=== PATIENT | female | born 1965 | race Caucasian/White ===

== ENCOUNTER → 2018-04-02 | Outpatient (CLI) | payer OTHER ==
[~2018-04-02] MED LIST: ASPIRIN 325 MG TABLET ONE; CLOPIDOGREL BISULFATE 75 MG TABLET ONE; HEPARIN for IV BOLUS 10,000 UNIT/10 ML VIAL. ONE; IOHEXOL 300 MG/ML 100ML VIAL. ONE; IV NORMAL SALINE 500ML BAG 1,000 ML ONE; IV NORMAL SALINE 500ML BAG 500 ML ONE; LIDOCAINE 1% PF 30 ML VIAL. ONE; WATER FOR INJECTION,STERILE 20 ML VIAL. IJ ONE; ceFAZolin SODIUM 1 GM VIAL ONE
--- NOTE | 2018-04-02 21:01 | PCVCINTER ---
EXAM: 1. INTRAVASCULAR ULTRASOUND OF THE INFERIOR VENA CAVA 2. INTRAVASCULAR ULTRASOUND OF THE RIGHT COMMON AND EXTERNAL ILIAC AND COMMON FEMORAL VEINS 3. INTRAVASCULAR ULTRASOUND OF THE LEFT COMMON AND EXTERNAL ILIAC AND COMMON FEMORAL VEINS 4. INFERIOR VENA CAVA AND BILATERAL ILIOFEMORAL VENOGRAPHY 5. RIGHT EXTERNAL ILIAC VEIN STENT PLACEMENT. 6. LEFT EXTERNAL ILIAC VEIN STENT PLACEMENT. INDICATION: Iliofemoral venous obstruction. Chronic Venous Insufficiency Class 4a. Leg pain and swelling. Failed conservative therapy including medical grade compression stockings for at least 3 months. Venous hypertension chronic. PROCEDURE: Procedure and risks of IVC and ileofemoral venography and intravascular ultrasound, and venous stent placement as appropriate including bleeding, infection, venous thrombosis, stent migration/thrombosis, contrast-induced nephropathy requiring dialysis, stroke, and were discussed with the patient and consent obtained. Patient was given IV antibiotics. The patient's right neck and chest was prepped and draped in the normal sterile fashion. IV conscious sedation was used throughout the procedure with appropriate monitoring. Ultrasound was used to interrogate the neck and showed the internal jugular vein to be patent. A spot ultrasound image of the internal jugular vein was saved. Under ultrasound guidance access into the right internal jugular vein was obtained and an 8F sheath was placed to the level of the lower IVC. Catheter was placed into the lower IVC and IVC cavogram performed. Catheter was placed to the level of the right common femoral vein and right iliofemoral venogram obtained. Catheter was placed to the level of the left common femoral vein and left iliofemoral venogram was obtained. The 8 [place] intravascular ultrasound catheter was then placed to the level of the right common femoral vein and intravascular ultrasound evaluation of the right common femoral, right external iliac, and right common iliac veins was accomplished in a pull-back fashion. The 8 [place] intravascular ultrasound catheter was then placed to the level of the left common femoral vein and intravascular ultrasound evaluation of the left common femoral, left external iliac, and left common iliac veins was accomplished in a pull-back fashion. Intravascular ultrasound evaluation of the inferior vena cava was then accomplished in a pullback fashion. Sheath was removed and hemostasis obtained using manual pressure. FINDINGS: IVC INTRAVASCULAR ULTRASOUND: Normal vessel: 10.8 x 23.0 mm. Area = 196.8 sq. mm. RIGHT COMMON ILIAC VEIN INTRAVASCULAR ULTRASOUND: Normal vessel: 8.2 x 18.2 mm. Area = 122.4 sq. mm. RIGHT EXTERNAL ILIAC VEIN INTRAVASCULAR ULTRASOUND: Normal vessel: 7.7 x 14.8 mm. Area = 97.0 sq. mm. Minimum vessel diameter: 0 x 0 mm. Area = 0 sq. mm. Post-Intervention diameter: 11.8 x 15.2 mm. Area = 146.6 sq. mm. RIGHT COMMON FEMORAL VEIN INTRAVASCULAR ULTRASOUND: Normal vessel: 12.0 x 16.6 mm. Area = 156.6 sq. mm. LEFT COMMON ILIAC VEIN INTRAVASCULAR ULTRASOUND: Normal vessel: 13.5 x 17.9 mm. Area = 194.1 sq. mm. LEFT EXTERNAL ILIAC VEIN INTRAVASCULAR ULTRASOUND: Normal vessel: 8.2 x 15.3 mm. Area = 95.2 sq. mm. Minimum vessel diameter: 2.8 x 10.6 mm. Area = 22.5 sq. mm. Post-Intervention diameter: 13.0 x 15.0 mm. Area = 155.0 sq. mm. LEFT COMMON FEMORAL VEIN INTRAVASCULAR ULTRASOUND: Normal vessel: 10.8 x 14.8 mm. Area = 127.6 sq. mm. VENOGRAPHY: INFERIOR VENA CAVA: Vessel is patent without significant stenosis, scarring, or extrinsic compression. RIGHT COMMON ILIAC VEIN: Vessel is patent without significant stenosis, scarring, or extrinsic compression. RIGHT EXTERNAL ILIAC VEIN: Diffuse high-grade stenosis throughout the vessel due to extrinsic compression. RIGHT COMMON FEMORAL VEIN: Vessel is patent without significant stenosis, scarring, or extrinsic compression. LEFT COMMON ILIAC VEIN: Vessel is patent without significant stenosis, scarring, or extrinsic compression. LEFT EXTERNAL ILIAC VEIN: Diffuse moderately high-grade stenosis throughout the vessel due to extrinsic compression. LEFT COMMON FEMORAL VEIN: Vessel is patent without significant stenosis, scarring, or extrinsic compression. IMPRESSION: Areas of significant stenosis are seen in the right and left external iliac veins due to extrinsic compression. These areas were treated with stent placements with good patency restored throughout the iliac veins bilaterally. LOC:[id number]
== END | disposition home or self-care (01) ==
LOC: PCVCINTER 09:41
PROVIDERS: ATTEND Nuclear Medicine Nuclear Cardiology
DX: I87.2 Venous insufficiency (chronic) (peripheral) (principal); I87.309 Chronic venous hypertension (idiopathic) without complications of unspecified lower extremity; I87.1 Compression of vein; Z88.2 Allergy status to sulfonamides; Z88.5 Allergy status to narcotic agent
CPT/HCPCS: 36012; 37238; 37239; 37252; 37253; 75822; 75825; 76937; C1725; C1751; C1769; C1876; C1894; J0690; J1644; J7040; Q9967

== ENCOUNTER → 2018-04-16 | Outpatient (CLI) | payer OTHER ==
--- NOTE | 2018-04-16 09:48 | PCVCIMAG ---
EXAM: BILATERAL SUPERFICIAL VENOUS DUPLEX INDICATION: Leg pain and swelling. FINDINGS: Right leg: No thrombus in the common femoral, main femoral, or popliteal veins. These veins are compressible. Right Great Saphenous Vein: At the saphenofemoral junction the diameter is 6.1 mm, in the mid thigh it is 3.8 mm, and in the calf it is 4.9 mm. There is not significant venous insufficiency/reflux throughout. Venous insufficiency/reflux duration is 0 seconds. Right Small Saphenous Vein: At the saphenopopliteal junction the diameter is 2.3 mm, and in the calf it is 2.8 mm. There is not significant venous insufficiency/reflux throughout. Venous insufficiency/reflux duration is 0 seconds. There is a cranial extension present. Left leg: No thrombus in the common femoral, main femoral, or popliteal veins. These veins are compressible. Left Great Saphenous Vein: At the saphenofemoral junction the diameter is 8.1 mm, in the mid thigh it is 3.4 mm, and in the calf it is 2.3 mm. There is not significant venous insufficiency/reflux throughout. Venous insufficiency/reflux duration is 0.2 seconds. Left Small Saphenous Vein: At the saphenopopliteal junction the diameter is 3.8 mm, and in the calf it is 5.1 mm. There is not significant venous insufficiency/reflux throughout. Venous insufficiency/reflux duration is 0.1 seconds. There is a cranial extension present. IMPRESSION: Right Great Saphenous Vein: No significant venous insufficiency/reflux is present as noted above. Right Small Saphenous Vein: No significant venous insufficiency/reflux is present as noted above. Left Great Saphenous Vein: No significant venous insufficiency/reflux is present as noted above. Left Small Saphenous Vein: No significant venous insufficiency/reflux is present as noted above. LOC:[id number]
--- NOTE | 2018-04-16 09:51 | PCVCIMAG ---
EXAM: VENOUS DUPLEX OF THE INFERIOR VENA CAVA AND RIGHT AND LEFT ILIAC VEINS INDICATION: Leg pain and swelling. FINDINGS: IVC: Good flow maintained throughout the inferior vena cava were visualized. Right iliac: Previous stent throughout the right external iliac vein maintaining good patency. No thrombus or stenosis in the common or external iliac veins. Left iliac: Previous stent throughout the left external iliac vein maintaining good patency. No thrombus or stenosis in the common or external iliac veins. IMPRESSION: Venous duplex evaluation of the inferior vena cava and iliac veins bilaterally within normal limits. Previous bilateral external iliac vein stents maintaining satisfactory patency. LOC:[id number]
== END | disposition home or self-care (01) ==
LOC: PCVCIMAG 10:39
PROVIDERS: ATTEND Nuclear Medicine Nuclear Cardiology
DX: M79.604 Pain in right leg (principal); M79.605 Pain in left leg; M79.89 Other specified soft tissue disorders
CPT/HCPCS: 93970; 93976

== ENCOUNTER → 2018-06-10 | Outpatient (CLI) | payer OTHER ==
--- NOTE | 2018-06-10 09:27 | PCVCIMAG ---
EXAM: VENOUS DUPLEX OF THE INFERIOR VENA CAVA AND RIGHT AND LEFT ILIAC VEIN INDICATION: Leg pain and swelling. Prior iliac vein stents. FINDINGS: IVC: Good flow maintained throughout the inferior vena cava where visualized. Right iliac: Previous stent throughout the right external iliac vein maintaining good patency. No thrombus or stenosis in the common or external iliac veins. Common femoral vein is patent. Left iliac: Previous stent throughout the left external iliac vein maintaining good patency. No thrombus or stenosis in the common or external iliac veins. Common femoral vein is patent. IMPRESSION: Venous duplex of the IVC and bilateral iliac veins is within normal limits. Previous bilateral external iliac vein stents maintaining satisfactory patency. LOC:[id number]
== END | disposition home or self-care (01) ==
LOC: PCVCIMAG 08:01
PROVIDERS: ATTEND Nuclear Medicine Nuclear Cardiology
DX: I87.2 Venous insufficiency (chronic) (peripheral) (principal); M79.89 Other specified soft tissue disorders; M79.604 Pain in right leg
CPT/HCPCS: 93976